=== PATIENT | female | born 1965 | race Caucasian/White ===

== ENCOUNTER → 2017-12-28 | Outpatient (CLI) | payer BC, OTHER ==
[~2017-12-28] MED LIST: BUP100 PO; ESCI20TA38 PO; ONDA4TAB PO; PER PO
--- NOTE | 2017-12-28 16:36 | RADIOLOGY IMAGING REPORT ---
FACILITY: [facility] PATIENT NAME: Teresa Alfredo : 1965 MR: [id number] V: [id number] EXAM DATE: ORDERING PHYSICIAN: SHANT PRAKASH TECHNOLOGIST: Location: [facility] [place] Patient: Teresa Alfredo : 1965 Visit/Account:[id number] Date of Sevice: 12/28/2017 THYROID HISTORY: Thyroid nodules COMPARISON: January 15, 2015 FINDINGS: SIZE: Normal. Right lobe: 4.3 x 1 x 0.8 cm Left lobe: 4.1 x 0.7 x 0.9 cm Isthmus: 2 mm PARENCHYMA: Heterogeneous NODULES: Right lobe: * There are multiple slightly lobular cystic and solid masses in the right lobe all measuring less t bass 1 cm. Left lobe: * There is a 5 mm cyst inferior pole the left lobe and a 1 x 0.4 x 0.7 cm complex cystic nodule in t he mid left lobe Isthmus: * None discrete. VASCULARITY: Within normal limits. ADDITIONAL FINDINGS: None. IMPRESSION: There are solid and cystic nodules in the right lobe all measuring less than 1 cm There is a 1 cm complex cystic nodule in the mid left lobe measuring 1 cm in maximum dimension due to the difference in imaging technique this is not a comparable to the prior study REFERENCE: 2015 [employer] Management Guidelines for Adult Patients with Thyroid Nodules and D ifferentiated Thyroid Cancer: The [place] [employer] Guidelines Task Force on Thyroid Nodul es and Differentiated Thyroid Cancer. SONOGRAPHIC PATTERNS: * Benign: Purely cystic nodules (no solid component); estimated risk of malignancy <1 percent; no bi opsy recommended. * Very Low Suspicion: Spongiform or partially cystic nodules without any of the sonographic features described in low, intermediate, or high suspicion patterns; estimated risk of malignancy <3 percent; consider FNA at > 2 cm (Observation without FNA is also a reasonable option). * Low Suspicion: Isoechoic or hyperechoic solid nodule, or partially cystic nodule with eccentric so lid areas, without microcalcification, irregular margin or ETE (extra-thyroidal extension), or taller than wide shape; estimated risk of malignancy 5-10 percent; recommend FNA at >1.5 cm. * Intermediate Suspicion: Hypoechoic solid nodule with smooth margins without microcalcifications, E TE (extra-thyroidal extension), or taller than wide shape; estimated risk of malignancy 10-20 percent ; recommend FNA at > 1 cm. * High Suspicion: Solid hypoechoic nodule or solid hypoechoic component of a partially cystic nodule with one or more of the following features: irregular margins (infiltrative, microlobulated), microc alcifications, taller than wide shape, rim calcifications with small extrusive soft tissue component, evidence of ETE (extra-thyroidal extension); estimated risk of malignancy >70-90 percent; recommend FNA at > 1 cm. NOTES: * Although a sonographically suspicious subcentimeter thyroid nodule without evidence of extrathyroi glenis extension or sonographically suspicious lymph nodes may be observed with close sonographic follow -up rather than pursuing immediate FNA, patient age and preference may modify decision-making. A > 50% interval increase in nodule volume and/or development of new suspicious sonographic features are felt to be a valid reasons for potential re-aspiration of a nodule previously shown to have benig n FNA cytology. Report Dictated By: Ping Hoover MD at 12/28/2017 4:09 PM Report E-Signed By: Ping Hoover MD at 12/28/2017 4:32 PM WSN:[id number]
--- NOTE | 2018-01-14 09:06 | RADIOLOGY IMAGING REPORT ---
FACILITY: [facility] - [place] PATIENT NAME: PENG KENNEDY : [id number] MR: [id number] V: [id number] EXAM DATE: [id number] ORDERING PHYSICIAN: SHANT PRAKASH TECHNOLOGIST: Amie Solis PROCEDURE:BILATERAL DIGITAL SCREENING MAMMOGRAM WITH CAD ASSISTED INTERPRETATION & 3D TOMOSYNTHESIS COMPARISON:Prior mammograms 08/27/11, 08/24/11. INDICATIONS:SCREENING FINDINGS: Moderately dense heterogeneous fibroglandular tissue is seen throughout the breasts. Most of the parenchymal pattern has remained stable allowing for difference in mammographic technique & patient positioning. There is a rounded nodular density in the Left retroareolar breast on the prior study but is not seen on the current examination. A biopsy clip is seen in the upper outer quadrant of the Left breast. There is no demonstration of malignant appearing mass, malignant appearing calcifications or other secondary sign of malignancy in either breast. DIAGNOSTIC CATEGORY 2--BENIGN FINDING. RECOMMENDATIONS: ROUTINE MAMMOGRAM AND CLINICAL EVALUATION. IMPRESSION: BIRADS 2: Benign finding. No significant abnormality is seen. Dictated by: Ping Hoover M.D. on 01/13/2018 at 15:26 Transcribed by: COLLEEN on 01/13/2018 at 15:54 Approved by: Ping Hoover M.D. on 01/14/2018 at 9:05 [facility]
== END ==
LOC: MAMO 01:19
PROVIDERS: ATTEND Family Medicine
DX: Z12.31 Encounter for screening mammogram for malignant neoplasm of breast (principal); E04.2 Nontoxic multinodular goiter
CPT/HCPCS: 76536; 77063; 77067

== ENCOUNTER → 2019-01-06 | Outpatient (CLI) | payer BC ==
--- NOTE | 2019-01-11 09:40 | RADIOLOGY IMAGING REPORT ---
FACILITY: [facility] - [place] PATIENT NAME: PENG KENNEDY : [id number] MR: [id number] V: [id number] EXAM DATE: ORDERING PHYSICIAN: PETAR AMIN TECHNOLOGIST: Amie Solis PROCEDURE: BILATERAL DIGITAL SCREENING MAMMOGRAM WITH CAD ASSISTED INTERPRETATION & 3D TOMOSYNTHESIS REASON FOR STUDY: Screening FAMILY HISTORY OF BREAST CANCER: None BREAST PROCEDURES/TREATMENTS: Benign lumpectomy in the /Ultrasound guided breast biopsy on the Left 09/18/13 COMPARISON: 12/28/17, 09/18/13, 09/01/13, 08/03/13 VIEWS OBTAINED: Bilateral 2D & 3D full field CC & MLO BREAST DENSITY: The breasts are heterogeneously dense which can obscure small masses. MAMMOGRAM FINDINGS: There is a biopsy clip in the 3 o'clock position of the Left breast. There is a vague asymmetry in the posterior depth of the Left breast on the Left CC view which is incompletely imaged. A Left XCC view is recommended for further evaluation. There is also a nodular density in the lateral portion of the Left breast posterior depth Left CC view best appreciated on tomographic slice #11. Left breast Ultrasound recommended. IMPRESSION: BIRADS 0: Incomplete, need additional imaging evaluation. Additional views of the Left breast & Left breast Ultrasound recommended as described. DIAGNOSTIC CATEGORY 0--INCOMPLETE: NEED ADDITIONAL IMAGING EVALUATION. RECOMMENDATIONS: ADDITIONAL MAMMOGRAPHIC VIEWS REQUIRED: LEFT BREAST. ULTRASOUND: LEFT BREAST. Dictated by: Ping Hoover M.D. on 01/10/2019 at 12:43 Transcribed by: ALEXANDER on 01/10/2019 at 13:25 Approved by: Ping Hoover M.D. on 01/11/2019 at 9:39 [facility]
== END ==
LOC: MAMO 02:20
PROVIDERS: ATTEND Obstetrics & Gynecology
DX: R92.8 Other abnormal and inconclusive findings on diagnostic imaging of breast (principal)
CPT/HCPCS: 77063; 77067

== ENCOUNTER → 2019-01-18 | Outpatient (CLI) | payer BC ==
--- NOTE | 2019-01-19 10:27 | RADIOLOGY IMAGING REPORT ---
FACILITY: [facility] [place] PATIENT NAME: PENG KENNEDY : [id number] MR: [id number]: [id number] EXAM DATE: [id number] ORDERING PHYSICIAN: PETAR AMIN TECHNOLOGIST: Amie Solis PROCEDURE:LEFT DIGITAL MAMMOGRAM DIAGNOSTIC WITH CAD ASSISTED INTERPRETATION & 3D TOMOSYNTHESIS REASON FOR STUDY: Further evaluation. FAMILY HISTORY OF BREAST CANCER: None. BREAST PROCEDURES/TREATMENTS: Benign lumpectomy in . COMPARISON STUDIES: 01/06/19, 12/28/17, 09/18/13, 08/03/13. VIEWS OBTAINED: 2D & 3D full field Left XCC view. BREAST DENSITY: The breasts are heterogeneously dense which can obscure small masses. MAMMOGRAM FINDINGS: The vague asymmetry in the posterior depth lateral aspect of the Left breast on the recent Left CC view appears to represent fibroglandular tissue on the Left XCC Tomographic images. The additional nodular density lateral aspect of the Left breast posterior depth as seen on the prior Left CC view appeared to represent fibroglandular tissue. A biopsy clip is noted in the 3 o'clock position of the Left breast. DIAGNOSTIC CATEGORY 2--BENIGN FINDING. RECOMMENDATIONS: ROUTINE MAMMOGRAM AND CLINICAL EVALUATION. IMPRESSION: BIRADS 2: Benign finding. Dictated by: Ping Hoover M.D. on 01/18/2019 at 17:11 Transcribed by: COLLEEN on 01/19/2019 at 8:30 Approved by: Ping Hoover M.D. on 01/19/2019 at 10:25 [facility]
== END ==
LOC: MAMO 00:58
PROVIDERS: ATTEND Obstetrics & Gynecology
DX: R92.8 Other abnormal and inconclusive findings on diagnostic imaging of breast (principal)
CPT/HCPCS: 77061; 77065